=== PATIENT | female | born 1960 | race Caucasian/White ===

== ENCOUNTER → 2020-01-05 10:31 | Outpatient (CLI) | payer OTHER, SELFPAY ==
--- NOTE | ~2020-01-05 | DEXA_ITS ---
Bone Density Report Name: Sonia Betancur Age: 59 Sex: Female Ethnicity: White Date of : 1960 Indication: osteopenia; height loss; postmenopausal Referring Provider: Mahogany, Anat Study: Bone densitometry was performed. Exam Date: January 05, 2020 Accession number: [id number] Bone Density: Region BMD T-score Z-score Classification AP Spine (L1-L4) 0.903 -1.3 0.2 Osteopenia Femoral Neck (Left) 0.769 -0.7 0.6 Normal Total Hip (Left) 0.791 -1.2 -0.2 Osteopenia Femoral Neck (Right) 0.710 -1.2 0.1 Osteopenia Total Hip (Right) 0.779 -1.3 -0.3 Osteopenia Total Hip Mean 0.785 -1.3 -0.3 Osteopenia World Health Organization criteria for BMD impression classify patients as: Normal (T-score at or above -1.0), Osteopenia (T-score between -1.0 and -2.5), or Osteoporosis (T-score at or below -2.5). 10-year Fracture Risk(1): Major Osteoporotic Fracture 6.9% Hip Fracture 0.9% Reported Risk Factors: [place] (), Neck BMD=0.710, BMI=21.8, smoking (1) FRAX(R) Version 3.08. Fracture probability calculated for an untreated patient. Fracture probability may be lower if the patient has received treatment. Previous Exams: Region Exam Age BMD T-score BMD Change BMD Change Date g/cm2 vs Baseline vs Previous AP Spine(L1-L4) 01/05/2020 59 0.903 -1.3 -0.109* -0.019 11/26/2017 57 0.923 -1.1 -0.089* -0.015 11/09/2012 52 0.937 -1.0 -0.075* -0.075* 11/02/2008 48 1.012 -0.3 Total Hip(Left) 01/05/2020 59 0.791 -1.2 -0.032* 0.002 11/26/2017 57 0.790 -1.2 -0.034* 0.021 11/09/2012 52 0.768 -1.4 -0.055* -0.055* 11/02/2008 48 0.823 -1.0 Total Hip(Right) 01/05/2020 59 0.779 -1.3 -0.091* -0.017 11/26/2017 57 0.797 -1.2 -0.073* -0.051* 11/09/2012 52 0.847 -0.8 -0.022 -0.022 11/02/2008 48 0.870 -0.6 *Denotes significance at 95% confidence level, LSC for AP Spine = 0.022 g/cm2, LSC for Total Hip = 0.027 g/cm2 Clinical Information Provided by Patient: Smokes Has used the following medications: Vitamin D, Calcium Patient maximum height was 66 Menopause Age: 44 No regular weight bearing exercise Drinks caffeinated beverages Onset of menses at age 12 Number of children 0 Impression: The patient has low bone mass, based on the Total Spine
== END ==
PROVIDERS: Visit Provider Nurse Practitioner
DX: Z13.820 Encounter for screening for osteoporosis (principal); M85.89 Other specified disorders of bone density and structure, multiple sites
CPT/HCPCS: 77080

== ENCOUNTER → 2022-03-06 10:30 | Outpatient (CLI) | payer OTHER, SELFPAY ==
--- NOTE | ~2022-03-06 | DEXA_ITS ---
Bone Density Report Name: SANDRA GARCIA Age: 61 Sex: Female Ethnicity: White Date of : 1960 Indication: osteopenia; height loss; postmenopausal Referring Provider: Mahogany, Anat Study: Bone densitometry was performed. Exam Date: March 06, 2022 Accession number: [id number] Bone Density: Region BMD T-score Z-score Classification AP Spine (L1-L4) 0.903 -1.3 0.3 Osteopenia Femoral Neck (Left) 0.657 -1.7 -0.3 Osteopenia Total Hip (Left) 0.737 -1.7 -0.6 Osteopenia Femoral Neck (Right) 0.669 -1.6 -0.2 Osteopenia Total Hip (Right) 0.744 -1.6 -0.5 Osteopenia Total Hip Mean 0.741 -1.7 -0.6 Osteopenia World Health Organization criteria for BMD impression classify patients as: Normal (T-score at or above -1.0), Osteopenia (T-score between -1.0 and -2.5), or Osteoporosis (T-score at or below -2.5). 10-year Fracture Risk(1): Major Osteoporotic Fracture 9.2% Hip Fracture 1.8% Reported Risk Factors: [place] (), Neck BMD=0.657, BMI=23.4, smoking (1) FRAX(R) Version 3.08. Fracture probability calculated for an untreated patient. Fracture probability may be lower if the patient has received treatment. Previous Exams: Region Exam Age BMD T-score BMD Change BMD Change Date g/cm2 vs Baseline vs Previous AP Spine(L1-L4) 03/06/2022 61 0.903 -1.3 -0.109* 0.000 01/05/2020 59 0.903 -1.3 -0.109* -0.019 11/26/2017 57 0.923 -1.1 -0.089* -0.015 11/09/2012 52 0.937 -1.0 -0.075* -0.075* 11/02/2008 48 1.012 -0.3 Total Hip(Left) 03/06/2022 61 0.737 -1.7 -0.086* -0.054* 01/05/2020 59 0.791 -1.2 -0.032* 0.002 11/26/2017 57 0.790 -1.2 -0.034* 0.021 11/09/2012 52 0.768 -1.4 -0.055* -0.055* 11/02/2008 48 0.823 -1.0 Total Hip(Right) 03/06/2022 61 0.744 -1.6 -0.126* -0.036* 01/05/2020 59 0.779 -1.3 -0.091* -0.017 11/26/2017 57 0.797 -1.2 -0.073* -0.051* 11/09/2012 52 0.847 -0.8 -0.022 -0.022 11/02/2008 48 0.870 -0.6 *Denotes significance at 95% confidence level, LSC for AP Spine = 0.022 g/cm2, LSC for Total Hip = 0.027 g/cm2 Clinical Information Provided by Patient: Smokes Has used the following medications: Calcium, MTV, vit D included in Calcium Patient maximum height was 66 Menopause Age: 44 No regular weight bearing exercis
--- NOTE | ~2022-03-06 | MM_ITS ---
EXAMINATION: MM screening bessie BI w laura HISTORY: Screening TECHNIQUE: Craniocaudal and mediolateral oblique 3-D tomosynthesis images were obtained and synthetic 2-D images were generated. CAD analysis was submitted and interpreted. COMPARISON: Comparison to multiple prior studies sequentially, with oldest reviewed study dated 11/13. BREAST PARENCHYMAL COMPOSITION: The breasts are heterogeneously dense, which may obscure small masses . FINDINGS: There is no evidence of suspicious mass, calcification, or architectural distortion to sugg est malignancy in either breast. There has been no suspicious interval change. IMPRESSION: 1. No mammographic evidence of malignancy. 2. Recommend routine screening mammography in one year. BI-RADS Category 1: Negative Reviewed, dictated and finalized at location B. [employer]
== END ==
PROVIDERS: PCP Family Medicine; Visit Provider Nurse Practitioner
DX: Z12.31 Encounter for screening mammogram for malignant neoplasm of breast (principal); Z78.0 Asymptomatic menopausal state; M85.89 Other specified disorders of bone density and structure, multiple sites
CPT/HCPCS: 77063; 77067; 77080